=== PATIENT | male | born 1960 | race Caucasian/White ===

== ENCOUNTER 2017-07-18 11:45 | Emergency (ER) | payer OTHER ==
[2017-07-18] MEDS ORDERED: Lidocaine 1% 20 ML MDV INJECT ONE (12:03)
[2017-07-18] MEDS ORDERED: Bacitracin Oint 1 GM U/D Packet TOP ONE (12:03)
[2017-07-18] MEDS ORDERED: Diphtheria,Pertussis(Acell),Tetanus Vaccine 0.5 ML Syringe IM ONE (12:03)
--- NOTE | 2017-07-18 12:09 | EDM.PDOC ---
ED HPI GENERAL MEDICAL PROBLEM - General Chief Complaint: Laceration Stated Complaint: LACERATION IN HAND Time Seen by Provider: 07/18/17 11:59 Source of Information: Reports: Patient History Limitations: Reports: No Limitations - History of Present Illness INITIAL COMMENTS - FREE TEXT/NARRATIVE: HISTORY AND PHYSICAL: History of present illness: Patient is a 56 show male who presents to the emergency room with complaints of a laceration to the web of his left hand, between the first and second digit. States he was using a new box hinge and lock attacher and it slipped, creating a 3.2 cm laceration. States he washed his hand immediately after. Currently there is no bleeding. Unsure of his last tetanus shot. Has full range of motion, grasp, and strength to the affected extremity. Review of systems: As per history of present illness and below otherwise all systems reviewed and negative. Past medical history: As per history of present illness and as reviewed below otherwise noncontributory. Surgical history: As per history of present illness and as reviewed below otherwise noncontributory. Social history: No reported history of drug or alcohol abuse. Family history: As per history of present illness and as reviewed below otherwise noncontributory. Physical exam: Gen.: Well-developed well-nourished 56-year-old male. Alert and oriented. HEENT: Atraumatic, normocephalic, pupils reactive, negative for conjunctival pallor or scleral icterus, mucous membranes moist, throat clear, neck supple, nontender, trachea midline. Lungs: Clear to auscultation, breath sounds equal bilaterally, chest nontender. Heart: S1S2, regular, negative for clicks, rubs, or JVD. Abdomen: Soft, nondistended, nontender. Negative for masses or hepatosplenomegaly. Negative for costovertebral tenderness. Pelvis: Stable nontender. Genitourinary: Deferred. Rectal: Deferred. Extremities: Flexor and extensor tendons are intact in the first and second digit of the left hand. +CMS. Neurovascular unremarkable. Skin: 3.2 cm laceration, linear in the web between the first and second digit of the left hand. Neuro: Awake, alert, oriented. Cranial nerves II through XII unremarkable. Cerebellum unremarkable. Motor and sensory unremarkable throughout. Exam nonfocal. Diagnostics: [] Therapeutics: Soaked and cleansed and chlorhexidine 1% lidocaine -4 mL's was used. 4-0 nylon x7 interrupted sutures. Bacitracin with nonstick dressing Tdap was offered- patient declined Impression: Laceration Plan: 1. Please keep the wound clean and dry. Monitor for signs of infection. Stitches out in 7-10 days. 2. Please take your Keflex as prescribed. 1 tab twice a day 10 days. You may use Tylenol and/or ibuprofen as needed for pain management. 3. Follow-up with your primary care provider in the next 1-2 days. Return to the ED as needed and as discussed. Definitive disposition and diagnosis as appropriate pending reevaluation and review of above. Onset: Today Duration: Minutes: Location: Reports: Upper Extremity, Left Left Hand Pain Score (Numeric/FACES): 0 - Related Data Allergies Allergy/AdvReac Type Severity Reaction Status Date / Time No Known Allergies Allergy Verified 07/18/17 11:58 Home Meds: Home Meds . [No Known Home Meds] 07/18/17 [History] ED ROS GENERAL - Review of Systems Review Of Systems: ROS reveals no pertinent complaints other than HPI. ED EXAM, SKIN/RASH Exam: See Below (See dictation) ED SKIN PROCEDURES - Laceration/Wound Repair Left Hand Lac/Wound length In cm: 3.2 Appearance: Linear, Clean Distal NVT: Neuro & Vascular Intact, No Tendon Injury Anesthetic Type: Local Local Anesthesia - Lidocaine (Xylocaine): 1% Plain Local Anesthetic Volume: 4cc Skin Prep: Chlorhexidine (Hibiciens), Saline, Sterile Drape Saline Irrigation (cc's): 50 Exploration/Debridement/Repair: Wound Explored, In a Bloodless Field, No Foreign Material Found Closed with: Sutures Suture Size: 4-0 # of Sutures: 7 Suture Type: Nylon Course - Vital Signs Last Recorded V/S: Last Vital Signs Temp 35.9 C 07/18/17 12:02 Pulse 59 L 07/18/17 12:02 Resp 18 07/18/17 12:02 BP 109/66 07/18/17 12:02 Pulse Ox 96 07/18/17 12:02 - Orders/Labs/Meds Orders: Active Orders 24 hr Category Date Time Status Vaccines to be Administered [RC] PER UNIT ROUTINE Care 07/18/17 12:04 Active Meds: Medications Discontinued Medications Generic Name Dose Route Start Last Admin Trade Name Freq PRN Reason Stop Dose Admin Bacitracin 1 dose 07/18/17 12:03 07/18/17 12:17 Bacitracin Oint 1 Gm TOP 07/18/17 12:04 1 dose ONETIME ONE Administration Diphtheria/Tetanus/Acell Pertussis 0.5 ml 07/18/17 12:03 Adacel IM 07/18/17 12:04 .ONCE ONE Lidocaine HCl 20 ml 07/18/17 12:03 07/18/17 12:16 Xylocaine 1% INJECT 07/18/17 12:04 20 ml ONETIME ONE Administration Departure - Departure Time of Disposition: 12:40 Disposition: Home, Self-Care 01 Clinical Impression: Laceration - Discharge Information Instructions: Laceration Care, Adult, [id number] Referrals: PCP,None [Primary Care Provider] - Forms: ED Department Discharge Additional Instructions: My general discharge The following information is given to patients seen in the emergency department who are being discharged to home. This information is to outline your options for follow-up care. We provide all patients seen in our emergency department with a follow-up referral. The need for follow-up, as well as the timing and circumstances, are variable depending upon the specifics of your emergency department visit. If you don't have a primary care physician on staff, we will provide you with a referral. We always advise you to contact your personal physician following an emergency department visit to inform them of the circumstance of the visit and for follow-up with them and/or the need for any referrals to a consulting specialist. The emergency department will also refer you to a specialist when appropriate. This referral assures that you have the opportunity for follow-up care with a specialist. All of these measure are taken in an effort to provide you with optimal care, which includes your follow-up. Under all circumstances we always encourage you to contact your private physician who remains a resource for coordinating your care. When calling for follow-up care, please make the office aware that this follow-up is from your recent emergency room visit. If for any reason you are refused follow-up, please contact the [facility] Emergency Department at and asked to speak to the emergency department charge nurse. [facility] [address] [place] [phone] 1. Please keep the wound clean and dry. Please take your Keflex as prescribed. 1 tab twice a day 10 days. Monitor for signs of infection. Stitches out in 7- 10 days. 2. You may use Tylenol and/or ibuprofen as needed for pain management. 3. Follow-up with your primary care provider in the next 1-2 days. Return to the ED as needed and as discussed. - My Orders Last 24 Hours: My Active Orders 07/18/17 12:04 Vaccines to be Administered [RC] PER UNIT ROUTINE - Assessment/Plan Last 24 Hours: My Active Orders 07/18/17 12:04 Vaccines to be Administered [RC] PER UNIT ROUTINE
== END 2017-07-18 13:05 | disposition home or self-care (01) ==
LOC: MW.ED 11:45
DX: S61.412A Laceration without foreign body of left hand, initial encounter (principal); Z23 Encounter for immunization; W27.8XXA Contact with other nonpowered hand tool, initial encounter
CPT/HCPCS: 12002; 90471; 90715; 99282-25; 99283